=== PATIENT | female | born 1995 | race African-American/Black ===

== ENCOUNTER 2017-03-08 14:00 | Inpatient (IN) | payer OTHER ==
[~2017-03-08] VITALS: Ht 154.9 cm; Wt 49.9 kg
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
[2017-03-08 14:02] VITALS: BP 109/61
[2017-03-08 15:07] LABS: ABSOLUTE NEUTROPHILS 5.1 thou/uL (1.4-8.2); BASOPHILS 0.4 % (0.0-2.0); EOSINOPHILS 1.2 % (0.0-3.0); HEMATOCRIT 40.3 % (37.0-47.0); HEMOGLOBIN 13.7 gm/dL (12.0-15.0); LYMPHOCYTES 24.8 % (24.0-44.0); MCH 31.2 pg (26.0-34.0); MCV 91.8 fL (80.0-100.0); MONOCYTES 6.1 % (1.0-8.0); PLATELET COUNT 269 thou/uL (150-400); POLYS 67.5 % (36.0-66.0); RBC 4.39 mil/uL (4.20-5.00); RDW 12.5 % (10.5-14.5); WBC 7.5 thou/uL (4.0-11.0)
[2017-03-08 15:15] LABS: CALCIUM 9.5 mg/dL (8.5-10.1); CREATININE 0.9 mg/dL (0.6-1.0); POTASSIUM 3.6 mmol/L (3.5-5.1)
[2017-03-08 15:16] LABS: MANUAL DIFF NO
[2017-03-08 15:21] LABS: INR 1.1; PROTIME 11.1 Seconds (9.3-11.4)
[2017-03-08 16:47] VITALS: BP 121/75
[2017-03-08 17:40] VITALS: BP 105/68
[2017-03-08 17:58] VITALS: BP 117/75
[2017-03-08 19:32] VITALS: BP 116/70
[2017-03-08 23:58] VITALS: BP 118/79
[2017-03-09] VITALS (9 sets, daily range): BP systolic 113–154; BP diastolic 64–85
[2017-03-09 06:17] LABS: HEMATOCRIT 35.6 % (37.0-47.0); HEMOGLOBIN 11.9 gm/dL (12.0-15.0); MCHC 33.4 g/dL (28.0-37.0); MCV 92.8 fL (80.0-100.0); RBC 3.84 mil/uL (4.20-5.00); RDW 12.1 % (10.5-14.5); WBC 8.7 thou/uL (4.0-11.0)
[2017-03-09 06:28] LABS: CALCIUM 8.8 mg/dL (8.5-10.1); CREATININE 0.8 mg/dL (0.6-1.0); POTASSIUM 3.3 mmol/L (3.5-5.1)
[2017-03-09 15:28] LABS: HIV-1 P24 AG Nonreactive (Nonreactive)
[2017-03-10 05:09] VITALS: BP 116/72
[2017-03-10 05:55] LABS: HEMATOCRIT 29.6 % (37.0-47.0); HEMOGLOBIN 10.1 gm/dL (12.0-15.0); MCH 31.6 pg (26.0-34.0); MCHC 34.2 g/dL (28.0-37.0); MCV 92.3 fL (80.0-100.0); RBC 3.2 mil/uL (4.20-5.00); RDW 12.3 % (10.5-14.5)
[2017-03-10 09:23] VITALS: BP 95/51
[2017-03-10 09:24] VITALS: BP 99/60
[2017-03-10 16:00] VITALS: BP 115/72
[2017-03-10 17:12] LABS: HBsAG-EMPLOYEE EXPOSURE Negative (Negative); HCV AB-EMPLOYEE EXPOSURE <0.1 (0.0-0.9)
[2017-03-10 22:30] VITALS: BP 120/67
[2017-03-11 05:20] VITALS: BP 113/56
[2017-03-11 05:35] LABS: HEMATOCRIT 28.1 % (37.0-47.0); HEMOGLOBIN 9.6 gm/dL (12.0-15.0); MCH 31.6 pg (26.0-34.0); MCHC 34.2 g/dL (28.0-37.0); MCV 92.6 fL (80.0-100.0); RBC 3.03 mil/uL (4.20-5.00); RDW 12.4 % (10.5-14.5); WBC 8.4 thou/uL (4.0-11.0)
[2017-03-11 05:44] LABS: CALCIUM 8.5 mg/dL (8.5-10.1); CREATININE 0.6 mg/dL (0.6-1.0); POTASSIUM 3.8 mmol/L (3.5-5.1)
[2017-03-11 07:52] VITALS: BP 105/64
[2017-03-11] MEDS ORDERED: IBUPROFEN 400400 M2 PO (09:40)
[2017-03-11] MEDS ORDERED: NORCO 5-325 TA1 EACH PO (09:40)
[2017-03-11] MEDS ORDERED: XARELTO10 MG PO (09:40)
[2017-03-11 16:13] VITALS: BP 116/71
[2017-03-11 20:00] VITALS: BP 110/65
[2017-03-12 04:00] VITALS: BP 110/66
[2017-03-12 06:29] LABS: HEMATOCRIT 26.8 % (37.0-47.0); HEMOGLOBIN 9.3 gm/dL (12.0-15.0); MCH 31.9 pg (26.0-34.0); MCHC 34.6 g/dL (28.0-37.0); MCV 92.4 fL (80.0-100.0); RBC 2.9 mil/uL (4.20-5.00); RDW 12.3 % (10.5-14.5); WBC 7.8 thou/uL (4.0-11.0)
[2017-03-12 07:40] VITALS: BP 109/64
[2017-03-12 12:11] VITALS: BP 109/64
[2017-03-12 12:15] VITALS: BP 109/64
== END 2017-03-12 18:36 | disposition home or self-care (01) | DRG 482 ==
LOC: ER 14:00 → 4N 16:24 → EROBS 16:24 → 4N 17:45 → ENTRNSPT 03-12 12:51 → EDTRNSPTSTS 03-12 12:59 → 4N 03-12 18:36
PROVIDERS: Hospitalist; Internal Medicine Endocrinology, Diabetes & Metabolism; Nurse Practitioner Family; Orthopaedic Surgery Sports Medicine
PROC: 0QS636Z Reposition Right Upper Femur with Intramedullary Internal Fixation Device, Percutaneous Approach (ICD-10-PCS; principal; 2017-03-09)
DX: S72.391A Other fracture of shaft of right femur, initial encounter for closed fracture (principal); G57.30 Lesion of lateral popliteal nerve, unspecified lower limb; E87.6 Hypokalemia; K21.9 Gastro-esophageal reflux disease without esophagitis; V49.88XA Car occupant (driver) (passenger) injured in other specified transport accidents, initial encounter; Y93.89 Activity, other specified; Y92.89 Other specified places as the place of occurrence of the external cause; Y99.8 Other external cause status
CPT/HCPCS: 10091; 50010; 50101; 50386; 50417; 51412; 51538; 52304; 55430; 56524; 56526; 62110; 62900; 70005